=== PATIENT | female | born 1995 | race Caucasian/White ===

== ENCOUNTER 2018-06-26 10:47 | Emergency (ER) | payer OTHER ==
[2018-06-26 11:02] VITALS: BP 110/74
[2018-06-26] MEDS ORDERED: ONDANSETRON HCL INJ/PF 4 MG/2 ML SDV IV ONE ×2 (11:33→13:01)
[2018-06-26] MEDS ORDERED: KETOROLAC TROMETHAMINE INJ/PF 30 MG/1 ML SDV IV ONE (11:34)
[2018-06-26] MEDS ORDERED: NORMAL SALINE 1000 ML 1,000 ML IV ONE (11:34)
--- NOTE | 2018-06-26 11:35 | ER Document Report ---
ED Medical Screen (RME) - General Chief Complaint: Nausea/Vomiting Stated Complaint: VOMITTING Time Seen by Provider: 06/26/18 11:26 Mode of Arrival: Ambulatory Information source: Patient TRAVEL OUTSIDE OF THE [place] IN LAST 30 DAYS: No - HPI Patient complains to provider of: n/v Notes: 06/26/18 11:34 Patient is here with complaints of nausea vomiting. The patient states he drank a lot of alcohol last evening. She stopped drinking around 11. She had beer and shots. She woke up around 6 AM with nausea, vomiting, feeling somewhat dizzy, having some abdominal pain. No fevers. No dysuria or hematuria. She denies any other substances aside from alcohol. Exam Nontoxic, no distress. No focal abdominal tenderness on exam. No CVA tenderness. Lungs clear and equal. Heart sounds normal. Plan CBC, CMP, lipase, urine, urine . Saline lock, IV fluids, Zofran, Toradol. Reassess. An initial examination was made on the patient as part of the triage process, and it was determined a more comprehensive evaluation was necessary. Initial labs were ordered and patient was transferred to another provider in the ED who assumed care and finished evaluation and plan. - Related Data Allergies/Adverse Reactions: No Known Allergies Allergy (Unverified 06/26/18 10:49) Physical Exam - Vital signs Vitals: Temp Pulse Resp BP Pulse Ox 98.1 F 60 14 110/74 100 06/26/18 11:01 06/26/18 11:01 06/26/18 11:01 06/26/18 11:01 06/26/18 11:01 Course - Vital Signs Vital signs: Temp Pulse Resp BP Pulse Ox 98.1 F 60 14 110/74 100 06/26/18 11:01 06/26/18 11:01 06/26/18 11:01 06/26/18 11:01 06/26/18 11:01
[2018-06-26 12:15] LABS: ABSOLUTE LYMPHOCYTES (AUTO) 1.9 10^3/uL (0.5-4.7); ABSOLUTE MONOCYTES (AUTO) 0.4 10^3/uL (0.1-1.4); ABSOLUTE NEUT (AUTO) 8.7 10^3/uL (1.7-8.2); BASOPHILS % (AUTO) 0.4 % (0-2); EOSINOPHILS % (AUTO) 0.4 % (0-6); HEMATOCRIT 42.1 % (36.0-47.0); HEMOGLOBIN 14.3 g/dL (12.0-15.5); LYMPHOCYTES % (AUTO) 16.9 % (13-45); MEAN CORPUSCULAR HEMOGLOBIN 30.4 pg (27.0-33.4); MEAN CORPUSCULAR VOLUME 90 fl (80-97); MONOCYTES % (AUTO) 3.7 % (3-13); PLATELET COUNT 345 10^3/uL (150-450); RED CELL DISTRIBUTION WIDTH 13.4 % (11.5-14.0); SEGMENTED NEUTROPHILS % (AUTO) 78.6 % (42-78); TOTAL CELLS COUNTED % (AUTO) 100 %; WHITE BLOOD COUNT 11.1 10^3/uL (4.0-10.5)
[2018-06-26 12:19] LABS: APPEARANCE,URINE SLIGHTLY-CLOUDY; BILIRUBIN,URINE NEGATIVE (NEGATIVE); COLOR,URINE YELLOW; GLUCOSE, URINE NEGATIVE (NEGATIVE); KETONES,URINE NEGATIVE (NEGATIVE); LEUKOCYTE ESTERASE,URINE NEGATIVE (NEGATIVE); NITRITE,URINE NEGATIVE (NEGATIVE); PROTEIN,URINE NEGATIVE (NEGATIVE); UROBILINOGEN,URINE NEGATIVE mg/dL (<2.0)
[2018-06-26 12:29] LABS: ALANINE AMINOTRANSFERASE 27 U/L (9-52); ALBUMIN 5.2 g/dL (3.5-5.0); ALKALINE PHOSPHATASE 53 U/L (38-126); ANION GAP 9 (5-19); ASPARTATE AMINO TRANSFERASE 24 U/L (14-36); BILIRUBIN,DIRECT 0.2 mg/dL (0.0-0.4); BILIRUBIN,TOTAL 1.1 mg/dL (0.2-1.3); BLOOD UREA NITROGEN 15 mg/dL (7-20); CALCIUM 10.5 mg/dL (8.4-10.2); CARBON DIOXIDE 26 mmol/L (22-30); CHLORIDE 110 mmol/L (98-107); GLUCOSE 107 mg/dL (75-110); LIPASE 82.1 U/L (23-300); POTASSIUM 4.4 mmol/L (3.6-5.0); SODIUM 144.7 mmol/L (137-145); TOTAL PROTEIN 8.3 g/dL (6.3-8.2)
[2018-06-26] MEDS ORDERED: DEXTROSE 5%-LACTATED RINGERS 1,000 ML IV ONE (12:29)
[2018-06-26] MEDS ORDERED: FAMOTIDINE INJ/PF 20 MG/2 ML SDV IV ONE (12:30)
[2018-06-26 12:33] LABS: ALCOHOL < 10 mg/dL (NONE DETECTED)
--- NOTE | 2018-06-26 13:01 | ER Document Report ---
Entered by CHRISTELLE FOSTER SCRIBE 06/26/18 1244 Acting as scribe for:PATRICIA DUMONT MD ED General - General Chief Complaint: Nausea/Vomiting Stated Complaint: VOMITTING Time Seen by Provider: 06/26/18 11:26 Mode of Arrival: Ambulatory Information source: Patient Notes: Patient is a 23 year old female presenting to the emergency department complaining of multiple symptoms including nausea, vomiting and a headache onset this morning. Patient states she consumed a copious amount of alcohol last night further stating she had several beers and several shots. She states she woke up around 0600 this morning very nauseous and had 3 vomiting episodes. She also complains of dizziness and diffuse abdominal pain that has since resolved. Patient states she has previously consumed a similar amount of alcohol but has never had similar symptoms after doing so. She denies any fevers. Patient is currently on Nexplanon. TRAVEL OUTSIDE OF THE [place] IN LAST 30 DAYS: No - Related Data Allergies/Adverse Reactions: No Known Allergies Allergy (Unverified 06/26/18 10:49) Past Medical History - General Information source: Patient - Social History Smoking Status: Never Smoker Cigarette use (# per day): No Chew tobacco use (# tins/day): No Smoking Education Provided: No Frequency of alcohol use: Social Drug Abuse: None Lives with: Family Family History: Reviewed & Not Pertinent Patient has suicidal ideation: No Patient has homicidal ideation: No Past Surgical History: Reports: Hx Tonsillectomy Review of Systems - Review of Systems Constitutional: No symptoms reported EENT: No symptoms reported Cardiovascular: See HPI, Dizziness Respiratory: No symptoms reported Gastrointestinal: See HPI, Nausea, Vomiting Genitourinary: No symptoms reported Female Genitourinary: No symptoms reported Musculoskeletal: No symptoms reported Skin: No symptoms reported Hematologic/Lymphatic: No symptoms reported Neurological/Psychological: See HPI, Headaches -: Yes All other systems reviewed and negative Physical Exam - Vital signs Vitals: Temp Pulse Resp BP Pulse Ox 98.1 F 60 14 110/74 100 06/26/18 11:01 06/26/18 11:01 06/26/18 11:01 06/26/18 11:01 06/26/18 11:01 - Notes Notes: GENERAL: Alert, wearing sunglasses, interacts well. No acute distress. HEAD: Normocephalic, atraumatic. EYES: Could not visualize eyes due to the patient wearing sunglasses. ENT: Oral mucosa dry, tongue midline. LUNGS: Clear to auscultation bilaterally, no wheezes, rales, or rhonchi. No respiratory distress. HEART: Regular rate and rhythm. No murmurs, gallops, or rubs. ABDOMEN: Soft, non-tender. Non-distended. Bowel sounds present in all 4 quadrants. No guarding, rigidity, or rebound. EXTREMITIES: Moves all 4 extremities spontaneously. Radial pulses 2/4 bilaterally. NEUROLOGICAL: Alert and oriented x3. Normal speech. PSYCH: Normal affect, normal mood. SKIN: Warm, dry, normal turgor. No rashes or lesions noted. Course - Re-evaluation Re-evalutation: 06/26/18 14:00 Patient has been sleeping. No further vomiting. Reports that her nauseousness is better. - Vital Signs Vital signs: Temp Pulse Resp BP Pulse Ox 98.1 F 60 14 110/74 100 06/26/18 11:01 06/26/18 11:01 06/26/18 11:01 06/26/18 11:01 06/26/18 11:01 - Laboratory Result Diagrams: 06/26/18 11:41 06/26/18 11:41 Laboratory results interpreted by me: 06/26/18 06/26/18 11:41 11:41 WBC 11.1 H Seg Neutrophils % 78.6 H Absolute Neutrophils 8.7 H Chloride 110 H Calcium 10.5 H Total Protein 8.3 H Albumin 5.2 H Discharge - Discharge Clinical Impression: Hangover without complication, Nausea and vomiting Condition: Stable Disposition: HOME, SELF-CARE Additional Instructions: Take the Zofran for nausea today if needed. Drink plenty of cool clear liquids. Get plenty of rest and sleep. Follow-up with a local medical doctor if not improving. RETURN TO THE EMERGENCY ROOM IF ANY NEW OR WORSENING SYMPTOMS. Forms: Return to Work Scribe Attestation: 06/26/18 13:03 I personally performed the services described in the documentation, reviewed and edited the documentation which was dictated to the scribe in my presence, and it accurately records my words and actions. I personally performed the services described in the documentation, reviewed and edited the documentation which was dictated to the scribe in my presence, and it accurately records my words and actions.
[2018-06-26] MEDS ORDERED: ONDANSETRON ODT 4 MG TAB (6 TAB/ER DISP) PO PRN (14:01)
== END 2018-06-26 14:39 | disposition home or self-care (01) ==
LOC: ER 10:47
DX: F10.129 Alcohol abuse with intoxication, unspecified (principal); R11.2 Nausea with vomiting, unspecified; R51 Headache; R42 Dizziness and giddiness; Z97.5 Presence of (intrauterine) contraceptive device
CPT/HCPCS: 96376; 99284; 96361; 96374; 96375; 36415; 80307; 83690; 85025; 81025; 80053; 81001; J1885; J2405; J7030; S0028